=== PATIENT | male | born 1965 | race Caucasian/White ===

== ENCOUNTER → 2020-02-23 08:07 | Outpatient (CLI) | payer OTHER, SELFPAY ==
--- NOTE | 2020-02-23 | DI.US.S_ITS ---
PROCEDURE: US ABDOMEN COMPLETE INDICATIONS: ELEV LIVER ENZYMES TECHNIQUE: Real-time scanning was performed of the abdominal and retroperitoneal organs, with image documentation. COMPARISON: None. FINDINGS: Liver: Liver is normal in size and homogeneous in echotexture. Gallbladder: The gallbladder appears normal Biliary ducts: Intrahepatic bile ducts are non-dilated. Extrahepatic bile duct caliber measures 4.0 mm. Normal is 6-7 mm or less in diameter, or 10 mm or less post-cholecystectomy. Pancreas: Visualized portions of the pancreas are sonographically normal. Spleen: Spleen is normal in size and homogeneous in echotexture. Kidneys: Kidneys are normal in size and echotexture. Right kidney measures 9.7 cm long; left kidney measures 11.1 cm long. No hydronephrosis or nephrolithiasis. No solid masses. There is a minimally complex 9 x 10 x 11 mm cyst at the lower pole of the right kidney posteriorly. Aorta: Visualized aorta is normal in caliber at less than 3 cm. Iliacs: Proximal common iliac arteries are normal in caliber at less than 2.5 cm. IVC: Intrahepatic inferior vena cava is patent. Miscellaneous: No free abdominal fluid. IMPRESSION: Source of elevated liver function tests is not identified. No sign of biliary distension or gallstones. No hepatic solid mass lesion is found. Continued clinical follow-up is recommended. Dictated by: Toro Soto M.D. on 02/23/2020 at 11:20 Approved by: Toro Soto M.D. on 02/23/2020 at 11:23
== END ==
PROVIDERS: Family Provider Family Medicine; PCP Family Medicine; Referring Provider Family Medicine; Visit Provider Family Medicine
DX: R74.0 Nonspecific elevation of levels of transaminase and lactic acid dehydrogenase [LDH] (principal)
CPT/HCPCS: 76700